=== PATIENT | male | born 1965 | race Caucasian/White ===

== ENCOUNTER 2021-09-03 04:25 | Emergency (ER) | payer MEDICAID, OTHER ==
[~2021-09-03] VITALS: Ht 167.6 cm; Wt 68.0 kg
[2021-09-03 04:28] VITALS: BP 158/90
[2021-09-03] MEDS ORDERED: CHLORDIAZEPOXIDE 25MG CAPSULE PO ONE (05:00)
[2021-09-03] MEDS ORDERED: CHLO25CA10 PO (05:13)
== END 2021-09-03 06:21 | disposition home or self-care (01) ==
LOC: ER 04:25
DX: F10.139 Alcohol abuse with withdrawal, unspecified (principal); Y90.9 Presence of alcohol in blood, level not specified; I10 Essential (primary) hypertension
CPT/HCPCS: 99283

== ENCOUNTER 2022-01-21 08:56 | Emergency (ER) | payer OTHER ==
[~2022-01-21] VITALS: Ht 157.5 cm; Wt 63.0 kg
[~2022-01-21 08:56] MED LIST: CHLO25CA10 PO
[2022-01-21 09:00] VITALS: BP 152/90
== END 2022-01-21 10:57 | disposition home or self-care (01) ==
LOC: ER 09:15
DX: Z48.02 Encounter for removal of sutures (principal)
CPT/HCPCS: 99281

== ENCOUNTER 2022-07-07 12:35 | Emergency (ER) | payer OTHER ==
[~2022-07-07] VITALS: Ht 167.6 cm; Wt 74.0 kg
[2022-07-07 12:43] VITALS: BP 176/114
== END 2022-07-07 14:47 | disposition home or self-care (01) ==
LOC: ER 12:48
DX: F10.229 Alcohol dependence with intoxication, unspecified (principal); Y90.0 Blood alcohol level of less than 20 mg/100 ml; I10 Essential (primary) hypertension
CPT/HCPCS: 99283